=== PATIENT | male | born 1990 | race Caucasian/White ===

== ENCOUNTER 2023-02-21 10:59 | Emergency (ER) | payer OTHER ==
[~2023-02-21] VITALS: Ht 177.8 cm; Wt 81.6 kg
[2023-02-21 11:19] VITALS: BP 140/82; PULSE 85; RESP 16; O2SAT 99
[2023-02-21] MEDS ORDERED: ONDANSETRON 4MG INJ ONE (11:59)
[2023-02-21] MEDS ORDERED: MAG/ALUM/SIMETH 30 ML UDCUP PO ONE (12:00)
[2023-02-21] MEDS ORDERED: GLUCAGON 1MG KIT 1 MG ML IM SCH (12:30)
== END 2023-02-21 16:30 | disposition home or self-care (01) ==
LOC: EDH 10:59
DX: R19.8 Other specified symptoms and signs involving the digestive system and abdomen (principal); Z98.890 Other specified postprocedural states
CPT/HCPCS: 99283; 74018; 96372; J1610; J2405